=== PATIENT | male | born 1960 | race Caucasian/White ===

== ENCOUNTER 2017-01-17 07:42 | Day surgery (SDC) | payer BC ==
[2017-01-17] MEDS ORDERED: Bupivacaine 0.5%/EPINEPHrine 1:200,000 50 ML MDV ONE (07:50)
[2017-01-17] MEDS ORDERED: Lidocaine 1% 50 ML MDV ONE (07:50)
[2017-01-17] MEDS ORDERED: Dextrose 5%-Lactated Ringers 1,000 ML IV SCH (08:45)
[2017-01-17] MEDS ORDERED: fentaNYL 100 MCG/2 ML SDV ONE (08:52)
[2017-01-17] MEDS ORDERED: Propofol 200 MG/20 ML SDV ONE (08:52)
[2017-01-17] MEDS ORDERED: Midazolam 1 MG/ML 2 ML SDV ONE (08:52)
[2017-01-17] MEDS ORDERED: Bacitracin Oint 1 GM U/D Packet ONE (09:16)
[2017-01-17 10:49] VITALS: BP 133/72
--- NOTE | 2017-01-17 16:46 | OR ---
DATE OF PROCEDURE: 01/17/2017 PREOPERATIVE DIAGNOSIS: Basal cell carcinoma of left lower eyelid. POSTOPERATIVE DIAGNOSIS: Basal cell carcinoma of left lower eyelid. OPERATIVE PROCEDURE: Excision of basal cell carcinoma left lower eyelid with layered closure ([id number]). ANESTHESIA: Local plus IV sedation. INDICATION FOR PROCEDURE: This is a 56-year-old presenting with a probable basal cell carcinoma of left lower eyelid. The plan is to proceed with excision of this. Potential risks including bleeding, infection, and possible recurrence were reviewed, some cosmetic or functional deformity given the location of the lesion, were all gone over, and the patient wishes to proceed. DETAILS OF PROCEDURE: The patient was taken to the operating room and placed in supine position. IV sedation was administered, after which the area around the left lower eyelid was prepped and draped. The skin incision was then marked out such that it would lie in the orientation of the skin creases. This had roughly 4 mm margin from the upper edge of the eyelid, so it should not cause any significant distortion of the eyelid structure as it complies to the eye. The area was anesthetized with 1% lidocaine mixed with Marcaine. An elliptical incision was made around the lesion, and the lesion was removed intact with small amount of normal skin around it. The incision was then closed with some 6-0 Vicryl stitch deep and then 6-0 Prolene skin stitch. Bacitracin was applied. The patient was taken to the recovery room in a satisfactory condition. The lesion measured 0.4 cm and incision length 1.7 cm. Michael Camarillo MD /[id number]
== END 2017-01-17 10:45 | disposition home or self-care (01) ==
LOC: JP.SDS 07:42
PROVIDERS: ATTEND Surgery
DX: C44.129 Squamous cell carcinoma of skin of left eyelid, including canthus (principal); I10 Essential (primary) hypertension; E78.5 Hyperlipidemia, unspecified
CPT/HCPCS: 11640; 12051; J2250; J2704; J3010; J7042; 88305

== ENCOUNTER 2023-01-14 13:03 | Emergency (ER) | payer BC ==
[2023-01-14] MEDS ORDERED: Aspirin 81 MG Tab.Chew PO ONE (13:08)
[2023-01-14] MEDS ORDERED: Sodium Chloride 0.9% 10 ML Syringe FLUSH PRN (13:22)
[2023-01-14 13:38] LABS: BASOPHILS ABSOLUTE AUTO 0.03 K/uL (0.00-0.10); BASOPHILS PERCENT AUTO 0.7 % (0.1-1.3); EOSINOPHILS ABSOLUTE AUTO 0.07 K/uL (0.00-0.40); EOSINOPHILS PERCENT AUTO 1.6 % (0.0-5.4); HEMATOCRIT 44.7 % (38.4-49.7); HEMOGLOBIN 15.3 g/dL (12.9-16.9); IMMATURE GRAN PERCENT AUTO 0.2 % (0.0-0.7); LYMPHOCYTES ABSOLUTE AUTO 1.27 K/uL (0.8-3.3); LYMPHOCYTES PERCENT AUTO 29.1 % (11.4-47.7); MEAN CORPUSCULAR HEMOGLOBIN 27.9 pg (31.6-35.5); MEAN CORPUSCULAR HGB CONC 34.2 g/dL (31.6-35.5); MEAN CORPUSCULAR VOLUME 81.6 fL (81.4-99.0); MONOCYTES ABSOLUTE AUTO 0.38 K/uL (0.20-0.90); MONOCYTES PERCENT AUTO 8.7 % (3.3-12.6); NEUTROPHILS ABSOLUTE AUTO 2.61 K/uL (1.0-7.6); NEUTROPHILS PERCENT AUTO 59.7 % (40.0-78.1); PLATELET COUNT,PLT 186 K/uL (130-375); RED BLOOD CELL COUNT 5.48 M/uL (4.14-5.76); WHITE BLOOD CELL COUNT,WBC 4.4 K/uL (3.2-11.0)
[2023-01-14 13:39] LABS: IMMATURE GRAN ABSOLUTE AUTO 0.01 K/uL (0.00-0.23)
[2023-01-14 13:43] LABS: ANION GAP 8.3 mmol/L (5.0-14.0); CREATININE 0.9 mg/dL (0.8-1.3); POTASSIUM,K 3.7 mmol/L (3.6-5.2); TROPONIN I HIGH SENSITIVITY 7.6 pg/mL (<=60.3)
[2023-01-14 13:46] LABS: INR 1.1; PROTHROMBIN TIME 10.8 sec (9.2-10.6); PTT,PARTIAL THROMBOPLSTIN TIME 26.2 sec (21.8-27.3)
[2023-01-14 14:36] VITALS: BP 148/91; PULSE 69
== END 2023-01-14 14:45 | disposition home or self-care (01) ==
LOC: JP.ED 13:03
DX: R07.89 Other chest pain (principal); E78.00 Pure hypercholesterolemia, unspecified; I10 Essential (primary) hypertension; K21.9 Gastro-esophageal reflux disease without esophagitis; Z79.899 Other long term (current) drug therapy
CPT/HCPCS: 36415; 80048; 84484; 85025; 85610; 85730; 93005; 99285; A9270

== ENCOUNTER 2023-12-17 07:37 | Day surgery (SDC) | payer BC ==
[2023-12-17] MEDS: Lactated Ringers 1,000 ML IV SCH (08:17)
[2023-12-17] MEDS ORDERED: fentaNYL 50 MCG/ML SDV ONE (08:18)
[2023-12-17] MEDS ORDERED: Propofol 200 MG/20 ML SDV ONE (08:18)
[2023-12-17] MEDS ORDERED: Midazolam 1 MG/ML 2 ML SDV ONE (08:18)
[2023-12-17 10:28] VITALS: BP 131/80; PULSE 64
== END 2023-12-17 10:50 | disposition home or self-care (01) ==
LOC: JP.SDS 07:37
PROVIDERS: ATTEND Family Medicine
DX: Z12.11 Encounter for screening for malignant neoplasm of colon (principal); I10 Essential (primary) hypertension; E78.5 Hyperlipidemia, unspecified
CPT/HCPCS: 45378; J2250; J2704; J3010; J7120